=== PATIENT | female | born 1995 | race Caucasian/White ===

== ENCOUNTER 2017-08-06 22:30 | Emergency (ER) | payer BC, OTHER ==
[~2017-08-06] VITALS: Ht 157.5 cm; Wt 56.0 kg
[~2017-08-06 22:30] MED LIST: SUDA120T3 PO; Z.0.BCPILL PO; ZOFR4TAB3 SL
[2017-08-06 22:33] VITALS: BP 131/91; PULSE 75; RESP 18; TEMP 98.1; O2SAT 100
--- NOTE | 2017-08-06 23:09 | PD ---
HPI Chief Complaint: GI Complaint Time Seen by Provider: 23:05 Travel History International Travel<30 days: No Contact w/Intl Traveler<30days: No Traveled to known affect area: No History of Present Illness HPI 21-year-old female presents to the emergency department for complaint of nausea and dry heaving mild abdominal discomfort diarrhea onset since 5 PM. Patient is to drinking alcohol. Patient denies hematemesis coffee-ground emesis melena or hematochezia. Last menstrual period was 1 month ago patient is on control pills and denies tobacco use. Patient admits to drinking alcohol today. Patient has been drinking alcohol over the past couple days and denies good oral hydration. Patient states she vomited 1 here and feels better. Patient states due to feeling weak and nauseated called her parents to bring her to the hospital. Patient denies fever chills. Patient had no respiratory illness symptoms. Patient denies headache sore throat sinus pressure drainage cough congestion shortness of breath or chest pain. Patient also does not report any dysuria frequency urgency flank pain or hematuria. Patient does not report any abnormal vaginal discharge. Patient denies . [facility] Past Medical History Narrative Medical Negative past medical history; oral surgery; alcohol use; nursing notes reviewed Medical History: Denies Significant Hx Diminished Hearing: No Immunizations Current: Yes Tetanus Vaccination: < 5 Years Influenza Vaccination: Yes ?: Not LMP: 2-17-18 Past Surgical History Surgical History: No Previous Surgery Oral Surgery: Yes Social History Alcohol Use: No Tobacco Use: No Substance Use: No Allergies-Medications (Allergen,Severity, Reaction): Coded Allergies: No Known Allergies (Unverified Adverse Reaction, Unknown, 08/06/17) Reported Meds & Prescriptions Reported Meds & Active Scripts Active No Active Prescriptions or Reported Medications Review of Systems Except as stated in HPI: all other systems reviewed are Neg Physical Exam Narrative GENERAL: Well-developed well-nourished female no acute distress no respiratory distress SKIN: Warm and dry. HEAD: Normocephalic. EYES: No scleral icterus. No injection or drainage. NECK: Supple, trachea midline. No JVD or lymphadenopathy. CARDIOVASCULAR: Regular rate and rhythm without murmurs, gallops, or rubs. RESPIRATORY: Breath sounds equal bilaterally. No accessory muscle use. GASTROINTESTINAL: Abdomen soft, non-tender, nondistended. No guarding or rebound soft nontender MUSCULOSKELETAL: No cyanosis, or edema. BACK: Nontender without obvious deformity. No CVA tenderness. Data Data Last Documented VS Vital Signs Date Time Temp Pulse Resp B/P (MAP) Pulse Ox O2 Delivery O2 Flow Rate FiO2 08/07/17 00:49 78 18 105/59 (74) 99 Room Air 08/06/17 22:33 98.1 Orders Orders Ondansetron Inj (Zofran Inj) (08/06/17 23:15) Sodium Chlor 0.9% 1000 Ml Inj (Ns 1000 M (08/06/17 23:15) Complete Blood Count With Diff (08/06/17 23:05) Comprehensive Metabolic Panel (08/06/17 23:05) Urinalysis - C+S If Indicated (08/06/17 23:05) Lipase (08/06/17 23:05) Iv Access Insert/Monitor (08/06/17 23:05) Ecg Monitoring (08/06/17 23:05) Oximetry (08/06/17 23:05) Sodium Chloride 0.9% Flush (Ns Flush) (08/06/17 23:15) Chest, Single Ap (08/06/17 23:05) Ed Urine Pregnancytest Poc (08/06/17 23:05) Alcohol (Ethanol) (08/06/17 23:05) Drug Screen, Random Urine (08/06/17 23:05) Urine Culture (08/06/17 23:15) Ondansetron Inj (Zofran Inj) (08/07/17 00:15) Nitrofurantoin Monohyd Macrocr (Macrobid (08/07/17 01:15) Ed Discharge Order (08/07/17 01:12) Labs Laboratory Tests Test 08/06/17 23:15 White Blood Count 6.2 TH/MM3 Red Blood Count 4.64 MIL/MM3 Hemoglobin 14.0 GM/DL Hematocrit 40.8 % Mean Corpuscular Volume 87.9 FL Mean Corpuscular Hemoglobin 30.2 PG Mean Corpuscular Hemoglobin Concent 34.4 % Red Cell Distribution Width 11.7 % Platelet Count 219 TH/MM3 Mean Platelet Volume 8.5 FL Neutrophils (%) (Auto) 54.4 % Lymphocytes (%) (Auto) 36.3 % Monocytes (%) (Auto) 7.4 % Eosinophils (%) (Auto) 1.5 % Basophils (%) (Auto) 0.4 % Neutrophils # (Auto) 3.3 TH/MM3 Lymphocytes # (Auto) 2.3 TH/MM3 Monocytes # (Auto) 0.5 TH/MM3 Eosinophils # (Auto) 0.1 TH/MM3 Basophils # (Auto) 0.0 TH/MM3 CBC Comment DIFF FINAL Differential Comment Urine Color STRAW Urine Turbidity CLEAR Urine pH 6.0 Urine Specific [place] LESS/EQUAL 1.005 Urine Protein NEG mg/dL Urine Glucose (UA) NEG mg/dL Urine Ketones NEG mg/dL Urine Occult Blood NEG Urine Nitrite NEG Urine Bilirubin NEG Urine Urobilinogen 0.2 MG/DL Urine Leukocyte Esterase TRACE Urine RBC 0-3 /hpf Urine WBC 9-14 /hpf Urine Squamous Epithelial Cells > 8 /hpf Urine Bacteria MOD /hpf Microscopic Urinalysis Comment CULTURE INDICATED Blood Urea Nitrogen 8 MG/DL Creatinine 0.89 MG/DL Random Glucose 85 MG/DL Total Protein 7.3 GM/DL Albumin 3.7 GM/DL Calcium Level 8.3 MG/DL Alkaline Phosphatase 38 U/L Aspartate Amino Transf (AST/SGOT) 15 U/L Alanine Aminotransferase (ALT/SGPT) 22 U/L Total Bilirubin 0.3 MG/DL Sodium Level 136 MEQ/L Potassium Level 3.4 MEQ/L Chloride Level 103 MEQ/L Carbon Dioxide Level 25.2 MEQ/L Anion Gap 8 MEQ/L Estimat Glomerular Filtration Rate 79 ML/MIN Lipase 135 U/L Urine Opiates Screen NEG Urine Barbiturates Screen NEG Urine Amphetamines Screen NEG Urine Benzodiazepines Screen NEG Urine Cocaine Screen NEG Urine Cannabinoids Screen NEG Ethyl Alcohol Level LESS THAN 3 MG/DL MDM Medical Decision Making Medical Screen Exam Complete: Yes Emergency Medical Condition: Yes Medical Record Reviewed: Yes Differential Diagnosis Gastroenteritis, food poisoning, alcohol intoxication dehydration, electrolyte is Narrative Course IV access obtained specimens collected and sent for resulting patient given bolus normal saline along with Zofran 4 mg IV Diagnosis Primary Impression: Gastroenteritis Additional Impressions: Dehydration UTI (urinary tract infection) Referrals: Primary Care Physician call for appointment Patient Instructions: General Instructions Departure Forms: Tests/Procedures, Work Release Special Instructions: no work x 1 day Additional Instructions: Increase fluid hydration Follow clear liquid diet for next 12-24 hrs. then advance to bland/brat diet and then advance to regular diet as tolerated Complete course of antibiotic as prescribed Take acetaminophen/Tylenol every 4 hours as needed for fever 100.4F or greater Take as tolerated ibuprofen/Advil/Motrin every 6-8 hours as needed for fever 100.4F or greater Take Zofran as prescribed as needed for nausea and/or vomiting No work 1 day Follow-up with your primary care provider Med/Other Pt SpecificInfo: Prescription(s) given Scripts Nitrofurantoin Monohydrate Macrocrystals (Macrobid) 100 Mg Cap 100 MG PO BID for Infection for 7 Days, #14 CAP 0 Refills Prov: Allison Brandt MD 08/07/17 Ondansetron Odt (Zofran Odt) 4 Mg Tab 4 MG SL Q6HR Y for Nausea/Vomiting, #10 TAB 0 Refills Prov: Allison Brandt MD 08/07/17 Disposition: 01 DISCHARGE HOME Condition: Stable Allison Brandt MD Aug 06, 2017 23:09
[2017-08-06 23:15] VITALS: O2SAT 99
[2017-08-06] MEDS ORDERED: SODIUM CHLOR 0.9% 1000 ML INJ 1,000 ML IV ONE (23:15)
[2017-08-06] MEDS ORDERED: SODIUM CHLORIDE 0.9% FLUSH 10 ML FLUSH IVF PRN (23:15)
[2017-08-06] MEDS ORDERED: ONDANSETRON HCL 4 MG/2 ML VIAL IV PUSH ONE (23:15)
[2017-08-06 23:29] LABS: BILIRUBIN, URINE NEG (NEG); BLOOD, URINE NEG (NEG); GLUCOSE,URINE NEG (NEG); KETONE, URINE NEG (NEG); NITRITE,URINE NEG (NEG); URINE LEUKOCYTE ESTERASE TRACE (NEG)
[2017-08-06 23:30] LABS: AUTOMATED NEUTROPHIL # 3.3 TH/MM3 (1.8-7.7); BASOPHIL % 0.4 % (0.0-2.0); EOSINOPHIL # 0.1 TH/MM3 (0-0.4); EOSINOPHIL % 1.5 % (0.0-4.0); HEMATOCRIT 40.8 % (35.0-46.0); LYMPH % 36.3 % (9.0-44.0); LYMPHOCYTE # 2.3 TH/MM3 (1.0-4.8); MEAN CELL VOLUME 87.9 FL (80.0-100.0); MEAN CORPUSCULAR HEMOGLOBIN 30.2 PG (27.0-34.0); MEAN CORPUSCULAR HGB CONC 34.4 % (32.0-36.0); MEAN PLATELET VOLUME 8.5 FL (7.0-11.0); MONO % 7.4 % (0.0-8.0); MONOCYTE # 0.5 TH/MM3 (0-0.9); NEUT % 54.4 % (16.0-70.0); PLATELET COUNT 219 TH/MM3 (150-450); RED BLOOD COUNT 4.64 MIL/MM3 (4.00-5.30); RED CELL DISTRIBUTION WIDTH 11.7 % (11.6-17.2); WHITE BLOOD COUNT 6.2 TH/MM3 (4.0-11.0)
[2017-08-06 23:34] LABS: URINE COLOR STRAW (YELLW/STRAW)
[2017-08-06 23:35] LABS: BACTERIA, URINE MOD /hpf; RBC, URINE 0-3 /hpf (0-3); SQUAMOUS EPITHELIAL CELL URINE > 8 /hpf (0-5)
[2017-08-06 23:37] LABS: CHLORIDE 103 MEQ/L (98-107); SODIUM (NA) 136 MEQ/L (136-145)
[2017-08-06 23:42] LABS: ALBUMIN 3.7 GM/DL (3.4-5.0); BICARBONATE 25.2 MEQ/L (21.0-32.0); BLOOD UREA NITROGEN 8 MG/DL (7-18); CALCIUM 8.3 MG/DL (8.5-10.1); GLUCOSE,RANDOM 85 MG/DL (74-106)
[2017-08-06 23:45] LABS: ALT (GPT) 22 U/L (10-53); AST (GOT) 15 U/L (15-37); CREATININE 0.89 MG/DL (0.50-1.00); GLOMERULAR FILTRATION RATE 79 ML/MIN (>89)
[2017-08-06 23:46] LABS: TOTAL BILIRUBIN ADULT 0.3 MG/DL (0.2-1.0)
[2017-08-06 23:47] LABS: TOTAL PROTEIN 7.3 GM/DL (6.4-8.2)
[2017-08-06 23:48] LABS: ALKALINE PHOSPHATASE 38 U/L (45-117)
--- NOTE | 2017-08-07 00:06 | RADRPT ---
EXAM DATE/TIME: 08/06/2017 23:20 [place] COMPARISON: No previous studies available for comparison. INDICATIONS : Vomiting. MEDICAL HISTORY : None. SURGICAL HISTORY : None. ENCOUNTER: Initial ACUITY: 1 day PAIN SCORE: 4/10 LOCATION: Bilateral chest FINDINGS: A single view of the chest demonstrates the lungs to be symmetrically aerated without evidence of mas s, infiltrate or effusion. The cardiomediastinal contours are unremarkable. Osseous structures are intact. CONCLUSION: No acute cardiac pulmonary process. Tobi Cerda MD on August 07, 2017 at 0:04 Board Certified Radiologist. This report was verified electronically.
[2017-08-07] MEDS ORDERED: ONDANSETRON HCL 4 MG/2 ML VIAL IV PUSH ONE (00:15)
[2017-08-07 00:49] VITALS: BP 105/59; PULSE 78; RESP 18; O2SAT 99
[2017-08-07] MEDS ORDERED: NITROFURANTOIN MONOHYD MACROCR 100 MG CAP PO ONE (01:15)
[2017-08-07] MEDS ORDERED: MACR100C2 PO (01:30)
[2017-08-07] MEDS ORDERED: ZOFR4TAB3 SL (01:30)
== END 2017-08-07 01:40 | disposition home or self-care (01) ==
LOC: PHED 22:30
DX: K52.9 Noninfective gastroenteritis and colitis, unspecified (principal); E86.0 Dehydration; N39.0 Urinary tract infection, site not specified; B96.89 Other specified bacterial agents as the cause of diseases classified elsewhere
CPT/HCPCS: 71045; 80053; 80307; 81001; 83690; 84703; 85025; 87086; 96361; 96374; 99284; J2405; J7030